=== PATIENT | female | born 1990 | race Caucasian/White ===

== ENCOUNTER 2017-02-02 09:25 | Emergency (ER) | payer OTHER ==
[~2017-02-02] VITALS: Ht 190.5 cm; Wt 145.5 kg
[2017-02-02 09:30] VITALS: BP 153/82; TEMP 98.7
[2017-02-02 09:59] LABS: COLLECTION METHOD CLEAN CATCH
[2017-02-02 10:10] LABS: BASO % 0.8 % (0.0-2.0); EOS # 0.2 (0.0-0.7); GRAN # 2.6 (1.4-6.5); HEMATOCRIT 42.8 % (37.0-47.0); HEMOGLOBIN 14.9 g/dl (12.5-16.0); LYMPH # 1.6 (1.2-3.4); LYMPH % 32.6 % (20.0-51.0); MEAN CELL VOLUME 88 fl (80.0-100.0); MEAN CORPUSCULAR HEMOGLOBIN 31 pg (27.0-31.0); MEAN CORPUSCULAR HGB CONC 35 g/dl (33.0-37.0); MEAN PLATELET VOLUME 9.7 fl (7.4-10.4); MONO # 0.3 (0.1-0.6); MONO % 6.4 % (1.7-9.3); PLATELET COUNT 264 K/mm3 (130-400); RED BLOOD COUNT 4.89 M/mm3 (4.10-5.30); WHITE BLOOD COUNT 4.8 K/mm3 (4.8-10.8)
[2017-02-02 10:10] LABS: PH 8 (5-8); SQUAMOUS EPITHELIAL 0-2 /hpf; URINE APPEARANCE Clear; URINE BACTERIA Rare /hpf; URINE BILIRUBIN Negative (NEGATIVE); URINE BLOOD Negative (NEGATIVE); URINE COLOR Straw; URINE GLUCOSE Negative (NEGATIVE); URINE KETONE Negative (NEGATIVE); URINE LEUKOCYTE ESTERASE Trace (NEGATIVE); URINE PROTEIN(semi-quant) Negative (NEGATIVE); URINE RBC 0-2 /hpf; URINE UROBILINOGEN Negative (NEGATIVE); URINE WBC 0-2 /hpf
[2017-02-02 10:25] LABS: ADJUSTED CALCIUM 9.2 mg/dL (8.4-10.2); ALANINE AMINOTRANSFERASE 40 U/L (9-52); ALBUMIN 4.5 gm/dL (3.5-5.0); ALKALINE PHOSPHATASE 64 U/L (50-136); ANION GAP 9 mmol/L (7-16); BILIRUBIN,TOTAL 1.2 mg/dL (0.0-1.0); BLOOD UREA NITROGEN 7 mg/dL (7-17); CALCIUM 9.6 mg/dL (8.4-10.2); CARBON DIOXIDE 24 mmol/L (22-30); CHLORIDE 107 mmol/L (98-107); GLUCOSE 97 mg/dL (74-106); POTASSIUM 4.1 mmol/L (3.4-5.0); SODIUM 140 mmol/L (137-145); TOTAL PROTEIN 7.7 gm/dL (6.4-8.2)
[2017-02-02 10:33] LABS: C-REACTIVE PROTEIN < 0.5 mg/dL (0.0-0.9)
[2017-02-02 12:35] VITALS: PULSE 70
== END 2017-02-02 12:30 | disposition home or self-care (01) ==
LOC: COL.ER 09:25
PROVIDERS: Emergency Medicine
DX: R10.11 Right upper quadrant pain (principal); R10.31 Right lower quadrant pain; R11.0 Nausea; R19.7 Diarrhea, unspecified; Z87.442 Personal history of urinary calculi; Z98.890 Other specified postprocedural states

== ENCOUNTER 2017-02-06 16:19 | Inpatient (IN) | payer OTHER ==
[~2017-02-06] VITALS: Ht 190.5 cm; Wt 150.0 kg
[2017-02-06 18:06] LABS: BASO % 0.5 % (0.0-2.0); EOS # 0.3 (0.0-0.7); EOS % 3.9 % (0-4.0); GRAN # 4.6 (1.4-6.5); GRAN % 56.9 % (42.2-75.2); HEMATOCRIT 43.9 % (37.0-47.0); HEMOGLOBIN 15.1 g/dl (12.5-16.0); LYMPH # 2.4 (1.2-3.4); LYMPH % 29.9 % (20.0-51.0); MEAN CELL VOLUME 89 fl (80.0-100.0); MEAN CORPUSCULAR HEMOGLOBIN 30 pg (27.0-31.0); MEAN CORPUSCULAR HGB CONC 34 g/dl (33.0-37.0); MEAN PLATELET VOLUME 9.9 fl (7.4-10.4); MONO # 0.7 (0.1-0.6); MONO % 8.7 % (1.7-9.3); PLATELET COUNT 293 K/mm3 (130-400); RED BLOOD COUNT 4.96 M/mm3 (4.10-5.30); WHITE BLOOD COUNT 8.2 K/mm3 (4.8-10.8)
[2017-02-06 18:17] LABS: ADJUSTED CALCIUM 8.6 mg/dL (8.4-10.2); ALANINE AMINOTRANSFERASE 46 U/L (9-52); ALBUMIN 4.8 gm/dL (3.5-5.0); ALKALINE PHOSPHATASE 65 U/L (50-136); ANION GAP 8 mmol/L (7-16); BILIRUBIN,TOTAL 0.8 mg/dL (0.0-1.0); BLOOD UREA NITROGEN 10 mg/dL (7-17); CALCIUM 9.2 mg/dL (8.4-10.2); CARBON DIOXIDE 26 mmol/L (22-30); CHLORIDE 106 mmol/L (98-107); CREATININE, serum 1.05 mg/dL (0.52-1.25); GLUCOSE 88 mg/dL (74-106); LIPASE 92 U/L (23-300); POTASSIUM 4.1 mmol/L (3.4-5.0); SODIUM 140 mmol/L (137-145); TOTAL PROTEIN 7.9 gm/dL (6.4-8.2)
[2017-02-06 18:21] LABS: C-REACTIVE PROTEIN < 0.5 mg/dL (0.0-0.9)
[2017-02-06 18:39] LABS: COLLECTION METHOD CLEAN CATCH
[2017-02-06 18:46] LABS: MUCOUS Present /lpf; PH 7 (5-8); SQUAMOUS EPITHELIAL 0-2 /hpf; URINE APPEARANCE Clear; URINE BACTERIA None Seen /hpf; URINE BILIRUBIN Negative (NEGATIVE); URINE BLOOD Negative (NEGATIVE); URINE COLOR Yellow; URINE GLUCOSE Negative (NEGATIVE); URINE KETONE Negative (NEGATIVE); URINE LEUKOCYTE ESTERASE Negative (NEGATIVE); URINE PROTEIN(semi-quant) 1+ (NEGATIVE); URINE RBC 0-2 /hpf; URINE UROBILINOGEN Negative (NEGATIVE); URINE WBC 0-2 /hpf
[2017-02-06] MEDS ORDERED: KLONOPIN WAF0.125 MG (20:31)
[2017-02-06 21:08] VITALS: BP 136/87; PULSE 82; TEMP 97.6
[2017-02-07] VITALS (11 sets, daily range): BP systolic 106–151; BP diastolic 48–82; PULSE 68–90; TEMP 97.9–98.5
[2017-02-08 02:20] VITALS: BP 115/63; PULSE 70; TEMP 98.2
[2017-02-08 05:31] VITALS: BP 119/77; PULSE 81; TEMP 98.2
[2017-02-08 09:03] VITALS: BP 141/62; PULSE 73; TEMP 98.1
== END 2017-02-08 10:22 | disposition home or self-care (01) | DRG 418 ==
LOC: COL.ER 16:19 → SURG 18:54
PROVIDERS: Nurse Practitioner; Surgery
PROC: 8E0W4CZ Robotic Assisted Procedure of Trunk Region, Percutaneous Endoscopic Approach (ICD-10-PCS; 2017-02-07)
PROC: 0FT44ZZ Resection of Gallbladder, Percutaneous Endoscopic Approach (ICD-10-PCS; principal; 2017-02-07 10:00)
DX: K81.2 Acute cholecystitis with chronic cholecystitis (principal); Z68.41 Body mass index [BMI] 40.0-44.9, adult; E66.9 Obesity, unspecified
CPT/HCPCS: J1170; J1885; J2270; J2405; J2550; J2704; J2765; J3010; J7030; J7120

== ENCOUNTER → 2017-02-06 | Outpatient (CLI) | payer OTHER ==
[~2017-02-06] MED LIST: KLONOPIN WAF0.125 MG
== END ==
LOC: COL.RAD 08:00
DX: R10.9 Unspecified abdominal pain (principal)
CPT/HCPCS: A9537

== ENCOUNTER → 2017-02-12 | Outpatient (CLI) | payer OTHER ==
[2017-02-12 16:44] LABS: CHOLESTEROL RISK RATIO 6.2
[2017-02-12 17:15] LABS: THYROID STIMULATING HORMONE 2.62 uIU/mL (0.465-4.680)
== END ==
LOC: COL.LAB 13:19
PROVIDERS: Nurse Practitioner
DX: Z13.220 Encounter for screening for lipoid disorders (principal); N91.2 Amenorrhea, unspecified

== ENCOUNTER → 2017-10-17 | Outpatient (CLI) | payer BC | LOC: LIGHT 09:02 | DX: Z09 Encounter for follow-up examination after completed treatment for conditions other than malignant neoplasm (principal) ==

== ENCOUNTER → 2017-11-05 | Outpatient (CLI) | payer BC ==
[~2017-11-05] VITALS: Ht 190.5 cm; Wt 154.7 kg
[~2017-11-05] MED LIST changes: +KLONOPIN 0.5MG0.5 MG PO; +PRENATAL MVI PO
[2017-11-05 16:58] VITALS: BP 132/60; PULSE 64
== END ==
LOC: LIGHT 11:13
DX: E66.9 Obesity, unspecified (principal); Z71.3 Dietary counseling and surveillance

== ENCOUNTER → 2017-11-18 | Outpatient (CLI) | payer BC ==
[2017-11-18 09:21] LABS: ALBUMIN 4.1 gm/dL (3.5-5.0); BILIRUBIN,TOTAL 0.8 mg/dL (0.0-1.0); CALCIUM 9.5 mg/dL (8.4-10.2); CREATININE, serum 0.79 mg/dL (0.52-1.25); POTASSIUM 4.1 mmol/L (3.4-5.0); TOTAL PROTEIN 7.3 gm/dL (6.4-8.2)
== END ==
LOC: COL.LAB 08:35
PROVIDERS: Family Medicine
DX: E66.01 Morbid (severe) obesity due to excess calories (principal)

== ENCOUNTER → 2017-11-19 | Outpatient (CLI) | payer BC ==
[2017-11-19 18:56] LABS: CHOLESTEROL RISK RATIO 6.4
[2017-11-19 19:12] LABS: PROLACTIN 11.2 ng/mL (3.0-18.6)
[2017-11-19 19:26] LABS: TSH w REFLEX 1.56 uIU/mL (0.465-4.680)
[2017-11-20 15:21] LABS: FOLLICLE STIMULATING HORMONE 5.8 mIU/mL (()); LUTENIZING HORMONE 5.7 mIU/mL (())
== END ==
LOC: COL.LAB 17:10
PROVIDERS: Family Medicine
DX: N91.2 Amenorrhea, unspecified (principal); N89.8 Other specified noninflammatory disorders of vagina

== ENCOUNTER → 2017-11-19 | Outpatient (CLI) | payer BC | LOC: LIGHT 13:47 | DX: E78.5 Hyperlipidemia, unspecified (principal); F41.1 Generalized anxiety disorder; F50.81 Binge eating disorder; E66.01 Morbid (severe) obesity due to excess calories; Z68.41 Body mass index [BMI] 40.0-44.9, adult; Z71.3 Dietary counseling and surveillance ==

== ENCOUNTER → 2017-11-26 | Outpatient (CLI) | payer BC | LOC: COL.RAD 07:19 | DX: N91.2 Amenorrhea, unspecified (principal) ==

== ENCOUNTER → 2017-12-04 | Outpatient (CLI) | payer BC | LOC: BHSO 11:02 | DX: F43.23 Adjustment disorder with mixed anxiety and depressed mood (principal) ==

== ENCOUNTER → 2017-12-12 | Outpatient (CLI) | payer BC | LOC: BHSO 08:58 | DX: F32.9 Major depressive disorder, single episode, unspecified (principal); E66.9 Obesity, unspecified; Z71.3 Dietary counseling and surveillance ==

== ENCOUNTER → 2017-12-17 | Outpatient (CLI) | payer BC | LOC: BHSO 08:00 | DX: F41.1 Generalized anxiety disorder (principal) ==

== ENCOUNTER → 2018-01-14 | Outpatient (CLI) | payer BC | LOC: BHSO 08:17 | DX: F33.1 Major depressive disorder, recurrent, moderate (principal) ==

== ENCOUNTER → 2018-01-28 | Outpatient (CLI) | payer BC | LOC: LIGHT 13:44 | DX: F50.81 Binge eating disorder (principal); E78.5 Hyperlipidemia, unspecified; F41.1 Generalized anxiety disorder; E66.01 Morbid (severe) obesity due to excess calories; Z68.41 Body mass index [BMI] 40.0-44.9, adult; Z71.3 Dietary counseling and surveillance ==

== ENCOUNTER → 2018-01-31 | Outpatient (CLI) | payer BC | LOC: BHSO 08:00 | DX: F41.1 Generalized anxiety disorder (principal) ==

== ENCOUNTER → 2018-02-10 | Outpatient (CLI) | payer BC ==
[~2018-02-10] VITALS: Ht 190.5 cm; Wt 146.5 kg
[~2018-02-10] MED LIST changes: +ADVIL200 MG PO; +BENADRYL25 M2 PO; +OPTISOURCE TAB1 EAC1 PO; +TYLENOL 325MG325 MG PO; +TYLENOL 500MG500 MG PO; +ZOFRAN 4MG T4 MG/TAB PO
[2018-02-10 16:52] VITALS: BP 116/70; PULSE 80
== END ==
LOC: LIGHT
DX: Z98.84 Bariatric surgery status (principal); F41.9 Anxiety disorder, unspecified; E66.01 Morbid (severe) obesity due to excess calories; Z68.41 Body mass index [BMI] 40.0-44.9, adult; Z71.3 Dietary counseling and surveillance

== ENCOUNTER → 2018-02-11 | Outpatient (CLI) | payer BC | LOC: BHSO 08:05 | DX: F41.1 Generalized anxiety disorder (principal) ==

== ENCOUNTER → 2018-02-19 | Outpatient (CLI) | payer BC | LOC: BHSO 08:01 | DX: F41.1 Generalized anxiety disorder (principal) ==

== ENCOUNTER → 2018-03-10 | Outpatient (CLI) | payer BC ==
[~2018-03-10] VITALS: Ht 190.5 cm; Wt 140.8 kg
[2018-03-10 16:30] VITALS: BP 122/70; PULSE 64
== END ==
LOC: LIGHT 11:39
DX: F50.81 Binge eating disorder (principal); F41.1 Generalized anxiety disorder; Z98.84 Bariatric surgery status; E66.01 Morbid (severe) obesity due to excess calories; Z68.38 Body mass index [BMI] 38.0-38.9, adult; Z71.3 Dietary counseling and surveillance

== ENCOUNTER → 2018-03-11 | Outpatient (CLI) | payer BC | LOC: BHSO 07:58 | DX: F33.1 Major depressive disorder, recurrent, moderate (principal) ==

== ENCOUNTER → 2018-03-27 | Outpatient (CLI) | payer BC | LOC: BHSO 16:09 | DX: F41.1 Generalized anxiety disorder (principal) ==

== ENCOUNTER → 2018-04-10 | Outpatient (CLI) | payer BC | LOC: BHSO 15:55 | DX: F43.22 Adjustment disorder with anxiety (principal) ==

== ENCOUNTER → 2018-04-22 | Outpatient (CLI) | payer BC | LOC: BHSO 15:37 | DX: F41.1 Generalized anxiety disorder (principal) ==

== ENCOUNTER → 2018-05-09 | Outpatient (CLI) | payer BC | LOC: BHSO 14:56 | DX: F41.1 Generalized anxiety disorder (principal) ==

== ENCOUNTER → 2018-05-19 | Outpatient (CLI) | payer BC ==
[~2018-05-19] MED LIST changes: +BIOTIN2500 MCG PO; +CITRACAL + D CA1 TAB PO
== END ==
LOC: BHSO 08:51
DX: F41.1 Generalized anxiety disorder (principal)

== ENCOUNTER → 2018-05-19 | Outpatient (CLI) | payer BC ==
[~2018-05-19] VITALS: Ht 190.5 cm; Wt 125.4 kg
[2018-05-19 16:26] VITALS: BP 120/56; PULSE 64
== END ==
LOC: LIGHT 10:02
DX: Z98.84 Bariatric surgery status (principal); E66.01 Morbid (severe) obesity due to excess calories; Z71.3 Dietary counseling and surveillance
CPT/HCPCS: G0463

== ENCOUNTER → 2018-06-02 | Outpatient (CLI) | payer BC | LOC: BHSO 15:53 | DX: F41.1 Generalized anxiety disorder (principal) ==

== ENCOUNTER → 2018-06-20 | Outpatient (CLI) | payer BC | LOC: BHSO 16:05 | DX: F41.1 Generalized anxiety disorder (principal) ==

== ENCOUNTER → 2018-07-11 | Outpatient (CLI) | payer BC | LOC: BHSO 11:01 | DX: F41.1 Generalized anxiety disorder (principal) ==

== ENCOUNTER → 2018-07-24 | Outpatient (CLI) | payer BC | LOC: BHSO 09:57 | DX: F41.1 Generalized anxiety disorder (principal) ==

== ENCOUNTER → 2018-08-05 | Outpatient (CLI) | payer BC ==
[2018-08-05 16:36] LABS: BASO % 0.4 % (0.0-2.0); EOS # 0.1 (0.0-0.7); EOS % 2.6 % (0-4.0); GRAN # 3.3 (1.4-6.5); GRAN % 60.2 % (42.2-75.2); HEMATOCRIT 41.6 % (37.0-47.0); LYMPH # 1.6 (1.2-3.4); LYMPH % 29.2 % (20.0-51.0); MEAN CELL VOLUME 91 fl (80.0-100.0); MEAN CORPUSCULAR HEMOGLOBIN 31 pg (27.0-31.0); MEAN CORPUSCULAR HGB CONC 34 g/dl (33.0-37.0); MONO # 0.4 (0.1-0.6); MONO % 7.4 % (1.7-9.3); PLATELET COUNT 266 K/mm3 (130-400); RED BLOOD COUNT 4.58 M/mm3 (4.10-5.30); REDCELL DISTRIBUTION WIDTH-CV 12.7 % (11.5-14.5)
[2018-08-05 17:11] LABS: ALBUMIN 4.1 gm/dL (3.5-5.0); BILIRUBIN,TOTAL 1.1 mg/dL (0.0-1.0); CALCIUM 9.4 mg/dL (8.4-10.2); CREATININE, serum 0.68 (0.52-1.25); POTASSIUM 4.2 mmol/L (3.4-5.0); TOTAL PROTEIN 7.2 gm/dL (6.4-8.2)
[2018-08-05 17:18] LABS: PRE ALBUMIN 19.4 mg/dL (17.6-36.0)
[2018-08-05 17:28] LABS: HIV 1/2 Antibodies Non-Reactive; HIV-1p24 Antigen Non-Reactive
[2018-08-08 01:55] LABS: RPR (VDRL) XXX
[2018-08-08 01:57] LABS: HERPES SIMPLEX VIRUS 1 IGG XXX; HERPES SIMPLEX VIRUS 2 IGG XXX
== END ==
LOC: ZCOL.LAB 16:15
PROVIDERS: Family Medicine
DX: Z11.3 Encounter for screening for infections with a predominantly sexual mode of transmission (principal); Z98.84 Bariatric surgery status

== ENCOUNTER → 2018-08-11 | Outpatient (CLI) | payer BC ==
[~2018-08-11] VITALS: Ht 190.5 cm; Wt 116.8 kg
[2018-08-11 16:10] VITALS: BP 102/70; PULSE 64
== END ==
LOC: LIGHT
DX: F41.1 Generalized anxiety disorder (principal); F50.81 Binge eating disorder; Z98.84 Bariatric surgery status; E66.01 Morbid (severe) obesity due to excess calories; Z68.32 Body mass index [BMI] 32.0-32.9, adult; Z71.3 Dietary counseling and surveillance
CPT/HCPCS: G0463

== ENCOUNTER → 2018-08-12 | Outpatient (CLI) | payer BC | LOC: BHSO 11:02 | DX: Z98.84 Bariatric surgery status (principal) ==

== ENCOUNTER → 2018-08-26 | Outpatient (CLI) | payer BC | LOC: BHSO 15:51 | DX: F41.1 Generalized anxiety disorder (principal) ==

== ENCOUNTER → 2018-09-11 | Outpatient (CLI) | payer BC | LOC: BHSO 08:59 | DX: F41.1 Generalized anxiety disorder (principal) ==

== ENCOUNTER → 2018-09-29 | Outpatient (CLI) | payer BC | LOC: BHSO 14:53 | DX: F41.1 Generalized anxiety disorder (principal) ==

== ENCOUNTER → 2018-10-09 | Outpatient (CLI) | payer BC ==
[~2018-10-09] VITALS: Ht 190.5 cm; Wt 115.0 kg
[2018-10-09 14:51] VITALS: BP 118/76; PULSE 84
== END ==
LOC: LIGHT 14:36
DX: F50.81 Binge eating disorder (principal); F41.9 Anxiety disorder, unspecified; Z98.84 Bariatric surgery status; E66.01 Morbid (severe) obesity due to excess calories; Z68.31 Body mass index [BMI] 31.0-31.9, adult; Z71.3 Dietary counseling and surveillance
CPT/HCPCS: G0463

== ENCOUNTER → 2018-10-16 | Outpatient (CLI) | payer BC | LOC: BHSO 15:52 | DX: F41.1 Generalized anxiety disorder (principal) ==

== ENCOUNTER → 2018-10-27 | Outpatient (CLI) | payer BC | LOC: BHSO 16:00 | DX: F41.1 Generalized anxiety disorder (principal) ==

== ENCOUNTER → 2018-11-18 | Outpatient (CLI) | payer BC | LOC: BHSO 09:53 | DX: F41.1 Generalized anxiety disorder (principal) ==

== ENCOUNTER → 2018-11-25 | Outpatient (CLI) | payer BC ==
[~2018-11-25] MED LIST changes: +[UNRECOGNIZED DRUG - OTHER]
== END ==
LOC: BHSO 15:55
DX: F41.1 Generalized anxiety disorder (principal)

== ENCOUNTER → 2018-11-27 | Outpatient (CLI) | payer BC ==
[~2018-11-27] VITALS: Ht 190.5 cm; Wt 113.9 kg
[2018-11-27 16:53] VITALS: BP 110/70; PULSE 79
== END ==
LOC: LIGHT 11:50
DX: F50.81 Binge eating disorder (principal); F41.1 Generalized anxiety disorder; Z98.84 Bariatric surgery status; E66.01 Morbid (severe) obesity due to excess calories; Z68.31 Body mass index [BMI] 31.0-31.9, adult; Z71.3 Dietary counseling and surveillance
CPT/HCPCS: G0463

== ENCOUNTER → 2018-12-04 | Outpatient (CLI) | payer BC | LOC: BHSO 16:14 | DX: F41.1 Generalized anxiety disorder (principal) ==

== ENCOUNTER 2018-12-18 18:33 | Inpatient (IN) | payer BC ==
[~2018-12-18] VITALS: Ht 190.5 cm; Wt 110.5 kg
[2018-12-18 19:30] LABS: BASO % 0.1 % (0.0-2.0); EOS # 0.1 (0.0-0.7); EOS % 1.7 % (0-4.0); GRAN # 6.3 (1.4-6.5); GRAN % 77.1 % (42.2-75.2); HEMATOCRIT 39.2 % (37.0-47.0); HEMOGLOBIN 13.4 g/dl (12.5-16.0); LYMPH # 1.2 (1.2-3.4); LYMPH % 14.2 % (20.0-51.0); MEAN CELL VOLUME 89 fl (80.0-100.0); MEAN CORPUSCULAR HEMOGLOBIN 30 pg (27.0-31.0); MEAN CORPUSCULAR HGB CONC 34 g/dl (33.0-37.0); MONO # 0.5 (0.1-0.6); MONO % 6.5 % (1.7-9.3); PLATELET COUNT 184 K/mm3 (130-400); RED BLOOD COUNT 4.43 M/mm3 (4.10-5.30); REDCELL DISTRIBUTION WIDTH-CV 12.5 % (11.5-14.5)
[2018-12-18 19:54] LABS: ALBUMIN 4.1 gm/dL (3.5-5.0); BILIRUBIN,TOTAL 0.5 mg/dL (0.0-1.0); C-REACTIVE PROTEIN 4.8 mg/dL (0.0-0.9); CREATININE, serum 0.55 (0.52-1.25); POTASSIUM 4.2 mmol/L (3.4-5.0); TOTAL PROTEIN 7.4 gm/dL (6.4-8.2)
[2018-12-18 20:11] LABS: COLLECTION METHOD CLEAN CATCH
[2018-12-18 20:17] LABS: MUCOUS Present /lpf; PH 5 (5-8); SQUAMOUS EPITHELIAL 0-2 /hpf; URINE APPEARANCE Clear; URINE BACTERIA None Seen /hpf; URINE BILIRUBIN Negative (NEGATIVE); URINE BLOOD Negative (NEGATIVE); URINE COLOR Yellow; URINE GLUCOSE Negative (NEGATIVE); URINE KETONE 2+ (NEGATIVE); URINE LEUKOCYTE ESTERASE Negative (NEGATIVE); URINE NITRATE Negative (NEGATIVE); URINE PROTEIN(semi-quant) Negative (NEGATIVE); URINE RBC 0-2 /hpf; URINE UROBILINOGEN Negative (NEGATIVE); URINE WBC 0-2 /hpf
[2018-12-19 00:28] VITALS: BP 109/71; PULSE 99; TEMP 98.6
--- NOTE | 2018-12-19 01:00 | NUR ---
Patient arrived on the unit from the ED. Lung sounds exp. wheezes bilaterally. No fever at this time. Patient states she does have slight headache, but declines pain medication at this time. IV in the right AC. Patient educated on collection of sputum. heart tones assessed.
[2018-12-19 02:13] LABS: MAGNESIUM 1.9 mg/dL (1.6-2.3)
[2018-12-19 02:50] LABS: TSH w REFLEX 1.48 uIU/mL (0.465-4.680)
[2018-12-19 04:00] VITALS: BP 119/56; PULSE 90; TEMP 98.4
--- NOTE | 2018-12-19 08:00 | NUR ---
UPON ENTRY TO THE ROOM THE PATIENT IS DROWSY AND ASLEEP IN BED. PATIENT AROUSES EASILY TO STIMULI. PATIENT IS A&OX4. TACHYCARDIA NOTED, OTHERWISE VSS. TELE IN PLACE. ALL LUNG ROTHMAN COARSE UPON AUSCULTATION. SHALLOW BREATHING NOTED. PATIENT STATES THAT SHE HAS SOME SOB. PATIENT DENIES A PRODUCTIVE COUGH AT THIS TIME. BOWEL SOUNDS ACTIVE ALL FOUR QUADRANTS. PATIENT TOLERATING DIET WITHOUT COMPLAINTS OF N/V. POSITIVE PEDAL PULSES EQUAL BILATERALLY. INT TO RIGHT AC. CALL LIGHT WITHIN REACH. PATIENT DENIES ANY OTHER NEEDS AT THIS TIME.
[2018-12-19 08:30] LABS: BASO % 0.2 % (0.0-2.0); EOS # 0.1 (0.0-0.7); EOS % 1.7 % (0-4.0); GRAN # 3.2 (1.4-6.5); HEMOGLOBIN 12.3 g/dl (12.5-16.0); MEAN CELL VOLUME 89 fl (80.0-100.0); MEAN CORPUSCULAR HEMOGLOBIN 30 pg (27.0-31.0); MEAN CORPUSCULAR HGB CONC 34 g/dl (33.0-37.0); MEAN PLATELET VOLUME 9.8 fl (7.4-10.4); MONO # 0.5 (0.1-0.6); MONO % 9.9 % (1.7-9.3); PLATELET COUNT 168 K/mm3 (130-400); RED BLOOD COUNT 4.04 M/mm3 (4.10-5.30); REDCELL DISTRIBUTION WIDTH-CV 12.4 % (11.5-14.5)
[2018-12-19 08:40] LABS: CREATININE, serum 0.46 (0.52-1.25)
[2018-12-19 09:32] VITALS: BP 128/52; PULSE 71; TEMP 98.1
[2018-12-19 13:39] VITALS: BP 110/52; PULSE 95; TEMP 98
--- NOTE | 2018-12-19 13:40 | NUR ---
Patient is resting comfortably in bed. Call light and bedside table are in reach. Elsa has the lights off and is still resting. This nurse reported off the floor to Ainsley.
[2018-12-19 16:20] VITALS: BP 117/89; PULSE 85; TEMP 98.4
--- NOTE | 2018-12-19 16:55 | NUR ---
PATIENT CALLED OUT STATING THAT THE MUCOUS IS GETTING THICK, FEELS LIKE IT'S STUCK IN HER THROAT AND IS HAVING A DIFFICULT TIME DRINKING WATER. CARDIOPULMONARY CALLED FOR PRN BREATHING TREATMENT.
--- NOTE | 2018-12-19 16:55 | NUR ---
Core Winding Operator met with the patient to discuss discharge planning. Patient lives in [place] with her boyfriend, Tono (ph#[phone]) and their six year old son. Patient receives primary care services from [facility] and obtains her medications from [facility] with no issue. Patient reports independence with ADL's and does not have any concerns with returning home upon discharge. Patient does not have Advance Directives in place but was interested in taking home the form. SW provided.
--- NOTE | 2018-12-19 18:21 | NUR ---
family to visit, pt ambulates in room independently, no c/o pain, or shortness of breath at this time. Pt in bed, call light within reach, bed in lowest position. no further needs. Reported off to CHARLINE Schmitz.
--- NOTE | 2018-12-19 19:20 | NUR ---
REPORT GIVEN TO CHARLINE KEY.
[2018-12-19 19:35] VITALS: BP 118/59; PULSE 95; TEMP 98.8
--- NOTE | 2018-12-19 22:40 | NUR ---
NOTIFIED LABOR & DELIVERY RE FHT[facility]S ORDERED Q SHIFT BY OB NURSE AT [facility]. THEY ARE AWARE. MONITOR IS BY SINK.
--- NOTE | 2018-12-19 22:45 | NUR ---
OB NURSE HERE- [facility] 130.
--- NOTE | 2018-12-19 23:00 | NUR ---
PT UP TO BR. VOIDING W/O DIFFICULTY. CLEAR YELLOW URINE. SEE MAR FOR TYENOL FOR GENERAL ACHINESS. ATE ALITTLE FOOD EARLIER. STEADY GAIT. CALL LIGHT IN REACH. UP AD LYNN.
[2018-12-20] VITALS (7 sets, daily range): BP systolic 100–127; BP diastolic 46–70; PULSE 75–86; TEMP 97.9–98.5
--- NOTE | 2018-12-20 02:58 | NUR ---
PT SLEEPING. NO DISTRESS.
--- NOTE | 2018-12-20 05:00 | NUR ---
PT C/O HEADACHE/ COUGH. VSS. SEE MAR FOR TYLENOL/GUIFENISEN GIVEN. PT REPORTED GOT SL LIGHT HEADED FROM STANDING TOO FAST. NO OTHER COMPLAINTS.
--- NOTE | 2018-12-20 05:22 | NUR ---
HAS REMAINED AFEBRILE THROUGH THIS SHIFT.
[2018-12-20 07:37] LABS: BASO % 0.3 % (0.0-2.0); EOS # 0.1 (0.0-0.7); EOS % 3.7 % (0-4.0); GRAN # 2.3 (1.4-6.5); GRAN % 59.3 % (42.2-75.2); HEMOGLOBIN 12.2 g/dl (12.5-16.0); LYMPH # 1.1 (1.2-3.4); LYMPH % 27.5 % (20.0-51.0); MEAN CELL VOLUME 88 fl (80.0-100.0); MEAN CORPUSCULAR HEMOGLOBIN 31 pg (27.0-31.0); MEAN CORPUSCULAR HGB CONC 35 g/dl (33.0-37.0); MEAN PLATELET VOLUME 10.3 fl (7.4-10.4); MONO # 0.3 (0.1-0.6); MONO % 8.9 % (1.7-9.3); PLATELET COUNT 185 K/mm3 (130-400); RED BLOOD COUNT 3.99 M/mm3 (4.10-5.30); REDCELL DISTRIBUTION WIDTH-CV 12.4 % (11.5-14.5)
[2018-12-20 07:48] LABS: HEMATOCRIT 34.9 % (37.0-47.0)
[2018-12-20 07:50] LABS: CREATININE, serum 0.39 (0.52-1.25)
--- NOTE | 2018-12-20 10:21 | NUR ---
Family was present. I listened, visited and provided spiritual care.
--- NOTE | 2018-12-20 11:35 | NUR ---
FHR Doppler by this RN, FHR 140bpm.
--- NOTE | 2018-12-20 19:11 | NUR ---
Patient has done well throughout the day, requested tylenol for headache this afternoon, given per orders. States that she is no longer feeling as dizzy as she was this AM. States she feels ready to go home. Flu shot given, discharge education provided. All questions answered. INT to right AC discontinued by Marii OLIVIER. Patient dressing in room, will call once she is ready to leave.
--- NOTE | 2018-12-20 19:40 | NUR ---
Patient discharged via w/c. Personal belongings as well as discharge instructions sent with patient.
== END 2018-12-20 19:40 | disposition home or self-care (01) | DRG 831 ==
LOC: COL.ER 18:33 → SURG 23:19
PROVIDERS: Emergency Medicine; Nurse Practitioner Family; ADMIT Student in an Organized Health Care Education/Training Program
DX: O99.512 Diseases of the respiratory system complicating pregnancy, second trimester (principal); J18.1 Lobar pneumonia, unspecified organism; O99.342 Other mental disorders complicating pregnancy, second trimester; F41.9 Anxiety disorder, unspecified; R20.2 Paresthesia of skin; R51 Headache; O99.212 Obesity complicating pregnancy, second trimester; E66.9 Obesity, unspecified; O99.282 Endocrine, nutritional and metabolic diseases complicating pregnancy, second trimester; E28.2 Polycystic ovarian syndrome; Z3A.15 15 weeks gestation of pregnancy; Z87.442 Personal history of urinary calculi; Z90.49 Acquired absence of other specified parts of digestive tract
CPT/HCPCS: 99238; A4216; J0456; J0696; J7030; J7050

== ENCOUNTER → 2018-12-26 | Outpatient (CLI) | payer BC | LOC: BHSO 15:59 | DX: F41.1 Generalized anxiety disorder (principal) ==

== ENCOUNTER → 2019-01-05 | Outpatient (CLI) | payer BC | LOC: BHSO 10:55 | DX: F41.1 Generalized anxiety disorder (principal) ==

== ENCOUNTER → 2019-01-19 | Outpatient (CLI) | payer BC | LOC: BHSO 10:52 | DX: F41.1 Generalized anxiety disorder (principal) ==

== ENCOUNTER → 2019-02-02 | Outpatient (CLI) | payer BC, OTHER ==
[~2019-02-02] MED LIST changes: +VITAMIND3 5000
== END ==
LOC: BHSO 16:01
DX: F41.1 Generalized anxiety disorder (principal)

== ENCOUNTER → 2019-02-10 | Outpatient (CLI) | payer BC, OTHER | LOC: BHSO 15:58 | DX: F41.1 Generalized anxiety disorder (principal) ==

== ENCOUNTER 2019-02-16 11:14 | Emergency (ER) | payer BC ==
[~2019-02-16] VITALS: Ht 190.5 cm; Wt 117.3 kg
[~2019-02-16 11:14] MED LIST changes: -VITAMIND3 5000
--- NOTE | 2019-02-16 11:16 | NUR ---
Reactive FHR strip obtained. 145 moderate variability with accelerations. No decelerations. Denies regular contractions, LOF, vaginal bleeding and reports GFM.
[2019-02-16 11:37] VITALS: BP 135/61; TEMP 98
[2019-02-16 12:08] LABS: COLLECTION METHOD CLEAN CATCH
[2019-02-16 12:14] LABS: PH 6 (5-8); SQUAMOUS EPITHELIAL 0-2 /hpf; URINE APPEARANCE Clear; URINE BACTERIA None Seen /hpf; URINE BILIRUBIN Negative (NEGATIVE); URINE BLOOD Negative (NEGATIVE); URINE COLOR Yellow; URINE GLUCOSE Negative (NEGATIVE); URINE KETONE Negative (NEGATIVE); URINE LEUKOCYTE ESTERASE Negative (NEGATIVE); URINE NITRATE Negative (NEGATIVE); URINE PROTEIN(semi-quant) Negative (NEGATIVE); URINE RBC None Seen /hpf; URINE UROBILINOGEN Negative (NEGATIVE)
[2019-02-16 12:45] VITALS: PULSE 80
== END 2019-02-16 12:45 | disposition home or self-care (01) ==
LOC: COL.ER 11:14
PROVIDERS: Physician Assistant
DX: O71.9 Obstetric trauma, unspecified (principal); O26.892 Other specified pregnancy related conditions, second trimester; R10.9 Unspecified abdominal pain; Z3A.24 24 weeks gestation of pregnancy; V49.9XXA Car occupant (driver) (passenger) injured in unspecified traffic accident, initial encounter

== ENCOUNTER 2019-03-16 19:34 | Outpatient (CLI) | payer BC ==
[~2019-03-16] VITALS: Ht 190.5 cm; Wt 117.3 kg
--- NOTE | 2019-03-16 19:40 | NUR ---
G2L1 at 28 weeks arrives to unit with complaint of decreased movement and a few strong contractions at home. Pt reports she was doing dishes earlier today and had a strong contraction that doubled her over. She was also doing kick counts and only got to 7 movements in the allotted time. Pt reports the cramping/contractions have not been consistent but has had some 2 days in a row and was concerned. Pt reports some mild swelling to lower extremeties, deneis LOF, or vaginal bleeding. Denies headaches or changes in vision. Pt oriented to room, call light within reach, bed in low and locked position. US and toco explained and applied. Admission assessment started. Vital signs obtained.
[2019-03-16 20:00] VITALS: BP 141/72; PULSE 90; TEMP 98.6
[2019-03-16 20:15] VITALS: BP 132/73; PULSE 87
--- NOTE | 2019-03-16 20:35 | NUR ---
SVE performed, cervix closed. Updated patient that thought she would be ok to discharge home if cervix was closed and we still had a category 1 FHR tracing. Pt agreeable to plan for discharge at this time.
[2019-03-16 20:40] VITALS: BP 131/67; PULSE 82
[2019-03-16] MEDS ORDERED: VITAMIND3 5000 (20:45)
--- NOTE | 2019-03-16 20:54 | NUR ---
Discharge instructions reviewed with patient, pt verbalized understanding. Return precautions reviewed. Pt seen ambulating off unit with her child.
== END 2019-03-16 20:54 | disposition home or self-care (01) ==
LOC: LDRO 19:34
DX: O36.8130 Decreased fetal movements, third trimester, not applicable or unspecified (principal); O26.893 Other specified pregnancy related conditions, third trimester; R25.2 Cramp and spasm; Z3A.28 28 weeks gestation of pregnancy

== ENCOUNTER → 2019-03-24 | Outpatient (CLI) | payer BC ==
[~2019-03-24] MED LIST changes: +VITAMIND3 5000
== END ==
LOC: BHSO 12:58
DX: F41.1 Generalized anxiety disorder (principal)

== ENCOUNTER 2019-04-03 10:51 | Outpatient (CLI) | payer BC ==
[~2019-04-03] VITALS: Ht 190.5 cm; Wt 115.5 kg
--- NOTE | 2019-04-03 11:05 | NUR ---
Pt arrives on unit ambulatory. States frequent headaches with blurry vision and episodes of lightheadedness. Reports GFM. Denies LOF, vaginal bleeding and regular ctx. EFM and toco applied. VSS. Admission assessment completed. Dr. Lopez notified. Orders for CBC, CMP, and UA. Pt updated on POC. Safety reviewed. Bed locked in low position. Call light within reach. Bed locked in low position.
[2019-04-03 11:44] LABS: COLLECTION METHOD CLEAN CATCH
[2019-04-03 11:53] LABS: MUCOUS Present /lpf; PH 6 (5-8); URINE APPEARANCE Clear; URINE BACTERIA None Seen /hpf; URINE BILIRUBIN Negative (NEGATIVE); URINE BLOOD Negative (NEGATIVE); URINE COLOR Yellow; URINE GLUCOSE Negative (NEGATIVE); URINE KETONE Negative (NEGATIVE); URINE LEUKOCYTE ESTERASE Trace (NEGATIVE); URINE NITRATE Negative (NEGATIVE); URINE PROTEIN(semi-quant) Negative (NEGATIVE); URINE RBC 0-2 /hpf; URINE UROBILINOGEN Negative (NEGATIVE); URINE WBC 0-2 /hpf
[2019-04-03 11:54] LABS: EOS # 0.1 (0.0-0.7); GRAN # 4.5 (1.4-6.5); GRAN % 76.5 % (42.2-75.2); HEMOGLOBIN 12.4 g/dl (12.5-16.0); LYMPH # 0.8 (1.2-3.4); LYMPH % 13.2 % (20.0-51.0); MEAN CELL VOLUME 88 fl (80.0-100.0); MEAN CORPUSCULAR HEMOGLOBIN 30 pg (27.0-31.0); MEAN CORPUSCULAR HGB CONC 34 g/dl (33.0-37.0); MEAN PLATELET VOLUME 9.9 fl (7.4-10.4); MONO # 0.5 (0.1-0.6); MONO % 8.4 % (1.7-9.3); PLATELET COUNT 216 K/mm3 (130-400); RED BLOOD COUNT 4.15 M/mm3 (4.10-5.30); REDCELL DISTRIBUTION WIDTH-CV 12.7 % (11.5-14.5)
[2019-04-03 11:57] LABS: ALBUMIN 3.3 gm/dL (3.5-5.0); BILIRUBIN,TOTAL 0.7 mg/dL (0.0-1.0); CALCIUM 8.7 mg/dL (8.4-10.2); CREATININE, serum 0.4 (0.52-1.25); HEMATOCRIT 36.7 % (37.0-47.0); TOTAL PROTEIN 6.4 gm/dL (6.4-8.2)
[2019-04-03 12:00] VITALS: BP 128/64; PULSE 83; TEMP 98.2
--- NOTE | 2019-04-03 12:35 | NUR ---
Dr. Lopez reviews labs and FHR strip. Orders for discharge. Pt instructed to follow up as scheduled. Labor precautions reviewed. Pt verbalizes understanding. Leaves unit ambulatory.
== END 2019-04-03 12:40 | disposition home or self-care (01) ==
LOC: LDRO 10:51
PROVIDERS: Obstetrics & Gynecology
DX: O99.89 Other specified diseases and conditions complicating pregnancy, childbirth and the puerperium (principal); R51 Headache; R42 Dizziness and giddiness; Z3A.30 30 weeks gestation of pregnancy

== ENCOUNTER → 2019-04-06 | Outpatient (CLI) | payer BC | LOC: BHSO 15:57 | DX: F41.1 Generalized anxiety disorder (principal) ==

== ENCOUNTER → 2019-04-24 | Outpatient (CLI) | payer BC | LOC: BHSO 13:00 | DX: F41.1 Generalized anxiety disorder (principal) ==

== ENCOUNTER 2019-05-02 11:42 | Outpatient (CLI) | payer BC ==
[~2019-05-02] VITALS: Ht 190.5 cm; Wt 119.1 kg
--- NOTE | 2019-05-02 11:45 | NUR ---
Pt arrives on unit ambulatory with spouse. States possible SROM at 0800, and had to change pads x3. Denies ctx, vaginal bleeding, and reports GFM. Changed into clean gown. EFM and toco applied. VSS. Amniotest negative on pad. SVE per Kate Raza RN CL/-3. Amniotest negative. No fluid noted on glove. Admission assessment completed. Dr. Claudio notified. See physician notification.
[2019-05-02 12:15] VITALS: BP 133/75; PULSE 78; TEMP 98.2
--- NOTE | 2019-05-02 12:20 | NUR ---
Patient given discharge instructions and return precautions. Patient instructed to call/return with leaking of fluid, vaginal bleeding, contractions, decreased movement, or any other concerns. Patient verbalized understanding, denies questions or concerns. Patient ambulatory off of unit at this time.
== END 2019-05-02 12:20 | disposition home or self-care (01) ==
LOC: LDRO 11:42 → LDR 11:45 → LDRO 12:20
DX: Z34.83 Encounter for supervision of other normal pregnancy, third trimester (principal); Z3A.34 34 weeks gestation of pregnancy
CPT/HCPCS: OP

== ENCOUNTER → 2019-05-05 | Outpatient (CLI) | payer BC | LOC: BHSO 16:00 | DX: F41.1 Generalized anxiety disorder (principal) ==

== ENCOUNTER → 2019-05-13 | Outpatient (CLI) | payer BC | LOC: BHSO 12:58 | DX: F41.1 Generalized anxiety disorder (principal) ==

== ENCOUNTER 2019-05-17 14:39 | Outpatient (CLI) | payer BC, OTHER ==
[~2019-05-17] VITALS: Ht 190.5 cm; Wt 119.1 kg
--- NOTE | 2019-05-17 14:50 | NUR ---
Patient arrives ambulatory with FOB with complaints of irregular contractions since this morning. Patient reports intercourse this morning. Denies ROM or vaginal bleeding. Reports normal movement. Patient changes into gown, EFM explained and placed. VS obtained. SVE closed/thick/high. Patient repositioned and updated on plan of care. See physician notification.
[2019-05-17 15:05] VITALS: BP 137/72; PULSE 79; TEMP 98
[2019-05-17 15:32] VITALS: BP 137/72; PULSE 79; TEMP 98
--- NOTE | 2019-05-17 15:40 | NUR ---
Reactive FHR strip obtained. Patient off EFM per order. Labor precautions and kick counts reviewed. Patient denies questions. Leaves ambulatory with FOB.
== END 2019-05-17 15:40 | disposition home or self-care (01) ==
LOC: LDRO 14:39
DX: O62.9 Abnormality of forces of labor, unspecified (principal); Z3A.36 36 weeks gestation of pregnancy

== ENCOUNTER → 2019-10-29 | Outpatient (CLI) | payer BC, MEDICAID ==
[~2019-10-29] MED LIST changes: +ZYRTEC5 MG PO
== END ==
LOC: ZCOL.LAB 16:44
DX: J02.9 Acute pharyngitis, unspecified (principal); Z20.828 Contact with and (suspected) exposure to other viral communicable diseases

== ENCOUNTER 2022-11-17 08:30 | Emergency (ER) | payer MEDICAID ==
[~2022-11-17] VITALS: Ht 190.5 cm; Wt 139.5 kg
[2022-11-17 08:54] LABS: BASO % 0.5 % (0.0-2.0); EOS # 0.2 K/mm3 (0.0-0.7); EOS % 2.6 % (0.0-4.0); GRAN # 3.6 K/mm3 (1.4-6.5); GRAN % 58.5 % (42.2-75.2); HEMATOCRIT 42.1 % (37.0-47.0); HEMOGLOBIN 13.8 g/dl (12.5-16.0); LYMPH # 1.9 K/mm3 (1.2-3.4); LYMPH % 30.8 % (20.0-51.0); MEAN CELL VOLUME 90 fl (80.0-100.0); MEAN CORPUSCULAR HEMOGLOBIN 29 pg (27-31); MEAN CORPUSCULAR HGB CONC 33 g/dl (33.0-37.0); MEAN PLATELET VOLUME 9.7 fl (7.4-10.4); MONO # 0.5 K/mm3 (0.1-0.6); MONO % 7.4 % (1.7-9.3); PLATELET COUNT 276 K/mm3 (130-400); RED BLOOD COUNT 4.69 M/mm3 (4.10-5.30); REDCELL DISTRIBUTION WIDTH-CV 12.6 % (11.5-14.5)
[2022-11-17 09:12] LABS: ALANINE AMINOTRANSFERASE 16 U/L (0-55); ALBUMIN 4.1 gm/dL (3.5-5.0); ALKALINE PHOSPHATASE 54 U/L (40-150); ANION GAP 8 mmol/L (7-16); AST,SGOT 16 U/L (5-34); BILIRUBIN,TOTAL 1.1 mg/dL (0.2-1.2); BLOOD UREA NITROGEN 8 mg/dL (7-19); CALCIUM 9.5 mg/dL (8.4-10.2); CARBON DIOXIDE 25 mmol/L (22-29); CHLORIDE 106 mmol/L (98-107); GLUCOSE 97 mg/dL (70-99); SODIUM 139 mmol/L (136-145); TOTAL PROTEIN 7.3 gm/dL (6.2-8.1)
[2022-11-17 09:31] LABS: TSH w REFLEX 1.636 uIU/mL (0.350-4.940)
[2022-11-17 09:34] LABS: TROPONIN-I < 0.010 ng/mL (0.00-0.033)
[2022-11-17 11:30] VITALS: BP 140/83; PULSE 71; TEMP 98.3
== END 2022-11-17 11:31 | disposition home or self-care (01) ==
LOC: COL.ER 08:30
PROVIDERS: Emergency Medicine
DX: R51.9 Headache, unspecified (principal); R55 Syncope and collapse; F17.200 Nicotine dependence, unspecified, uncomplicated
CPT/HCPCS: J0780; J1200; J1885; J2405; J7120